=== PATIENT | male | born 1970 | race Caucasian/White ===

== ENCOUNTER 2016-12-22 09:23 | Emergency (ER) ==
[2016-12-22 09:35] VITALS: BP 100/54; TEMP 97.4; BMI 23.6
[2016-12-22] MEDS ORDERED: MORPHINE 4 MG/ML SYRINGE IM STA ×2 (09:50→11:36)
[2016-12-22] MEDS ORDERED: ZOFRAN 4 MG/2 ML IM STA ×2 (09:50→11:36)
--- NOTE | 2016-12-22 10:35 | ED.PDOC ---
General ED Provider: Dr. MARIS HOWARD Chief Complaint: Foot Pain/Injury Stated Complaint: foot ankle,pain left side knee pain right side Time Seen by Physician: 09:26 (this pt has fallen from 10 feet [facility] c/o pain knee and ankle pain) Mode of Arrival: Wheelchair Information Source: Patient Exam Limitations: No limitations Primary Care Provider: DON RICO Nursing and Triage Documentation Reviewed and Agree: Yes (NO LOC FALL 10 FEET ) Trauma/Injury Complaint Exam - Trauma Complaint/Exam Location of Pain or Injury: Reports: Other (HEAD , KNEE , WRIST ) Onset/Duration: 1 HRAGO Symptoms Are: Still present Timing of Treatment: Immediate Initial Severity: Moderate Current Severity: Moderate Character: Reports: Sharp Aggravating: Reports: Ambulation Alleviating: Reports: Rest, Immobilization Associated Signs and Symptoms: Reports: Bruising (LEFT ANKLE), Swelling (LEFT ANKLE ), Extremity disuse (LEFT ANKLE ). Denies: LOC, Confusion, Memory loss, Lethargy, Vomiting, Bleeding, Painful respiration, Hoarseness, Dysphagia, Hemoptysis, Significant blood loss (KNEE RIGHT SIDE TENDER , WRIST TENDER , DUE TO DISTRACTING PAIN SPINE WAS EVALUATED ) Review of Systems - Review Of Systems Constitutional: Reports: No symptoms Eyes: Reports: No symptoms Ears, Nose, Mouth, Throat: Reports: No symptoms Respiratory: Reports: No symptoms Cardiac: Reports: No symptoms GI: Reports: No symptoms : Reports: No symptoms Musculoskeletal: Reports: Other (KNEE PAIN, ANKLE PAIN WRIST PAIN ) Skin: Reports: No symptoms Neurological: Reports: No symptoms Endocrine: Reports: No symptoms Hematologic/Lymphatic: Reports: No symptoms All Other Systems: Reviewed and Negative Past Medical History - Past Medical History Previously Healthy: Yes Endocrine: Reports: None Cardiovascular: Reports: None Respiratory: Reports: None Hematological: Reports: None Gastrointestinal: Reports: None Genitourinary: Reports: None Neuro/Psych: Reports: None Musculoskeletal: Reports: None Cancer: Reports: None - Surgical History General Surgical History: Reports: Unknown - Family History Family History: Reports: Unknown - Social History Smoking Status: Current some day smoker, Chews tobacco Hx Substance Use: No Alcohol Screening: None - Immunizations Tetanus Shot up to Date: Yes Physical Exam - Physical Exam Appearance: Well-appearing, No pain distress, Well-nourished Eyes: EVELINE, EOMI, Conjunctiva clear ENT: Ears normal, Nose normal, Oropharynx normal Respiratory: Airway patent, Breath sounds clear, Breath sounds equal, Respirations nonlabored Cardiovascular: RRR, Pulses normal, No rub, No murmur GI/: Soft, Nontender, No masses, Bowel sounds normal, No Organomegaly Musculoskeletal: Limited ROM (LEFT ANKLE , LEFT ANKLE WAS MARKEDLY EDEMATOUS, BRUSED BUT ALL PULSES WERE STRONG AND PALPABLE CONFIRMED WITH DEYSI RAINEY FROM XRAY PRESENT WELL , RIGHT KNEE TNDER BUT NOT BRUSED LEFT WRIST TENDER AND ) Skin: Warm, Dry, Normal color Neurological: Sensation intact, Motor intact, Reflexes intact, Cranial nerves intact, Alert, Oriented Psychiatric: Affect appropriate, Mood appropriate Interpretation - Radiology Interpretation Radiology Interpretation By: Radiologist Radiology Results: Positive (COMMINUTED FRACTURE DISLOCATION OF LEFT ANKLE, POSTIVE FOR TIBIAL PLATUEA FX AND DISTAL RADIUS FRACTURE) Re-Evaluation - Re-Evaluation Time of Re-Evaluation: 10:30 Status: Improved Vital Signs Stable: Yes Pain Level: 2/10 Appearance: NAD Lungs: Clear Skin: Warm and Dry Neuro: Alert and Oriented X3 CV: Other (DISTALL PULSES STONG JOSE J PRESENT) Physician Notification - Case Discussed Physician Notified: yanique hernández MD Time of Notification: 11:43 (transfer now) Critical Care Note - Critical Care Note Total Time (mins): 0 Course - Course Orders, Labs, Meds: Orders Category Date Time Status Morphine Sulfate [Morphine 4 mg/ml Syringe] MEDS 12/22/16 09:50 Discontinued 4 mg IM ONCE STA Morphine Sulfate [Morphine 4 mg/ml Syringe] MEDS 12/22/16 11:36 Discontinued 4 mg IM ONCE STA Ondansetron HCl/Pf [Zofran 4 mg/2 ml] MEDS 12/22/16 09:50 Discontinued 4 mg IM ONCE STA Ondansetron HCl/Pf [Zofran 4 mg/2 ml] MEDS 12/22/16 11:36 Discontinued 4 mg IM ONCE STA ANKLE, LEFT MIN 3 VIEWS Stat RADS 12/22/16 09:[address] ABDOMEN/PELVIS WO CONTRAST Stat RADS 12/22/16 10:[address] CERVICAL SPINE W/O CONTRAST Stat RADS 12/22/16 10:[address] CHEST W/O CONTRAST Stat RADS 12/22/16 10:[address] HEAD W/O CONTRAST Stat RADS 12/22/16 10:[address] LUMBAR SPINE W/O CONTRAST Stat RADS 12/22/16 10:[address] THORACIC SPINE W/O CONTRAST Stat RADS 12/22/16 10:23 Completed FOOT, LEFT 2 VIEWS Stat RADS 12/22/16 09:50 Completed KNEE, RIGHT 4 VIEWS Stat RADS 12/22/16 09:50 Completed WRIST, LEFT 3 VIEWS Stat RADS 12/22/16 09:51 Completed Medications Discontinued Medications Generic Name Dose Route Start Last Admin Trade Name Ban PRN Reason Stop Dose Admin Morphine Sulfate 4 mg 12/22/16 09:50 12/22/16 09:56 Morphine 4 Mg/Ml Syringe IM 12/22/16 09:51 4 mg ONCE STA Administration Morphine Sulfate 4 mg 12/22/16 11:36 Morphine 4 Mg/Ml Syringe IM 12/22/16 11:37 ONCE STA Ondansetron HCl 4 mg 12/22/16 09:50 12/22/16 09:57 Zofran 4 Mg/2 Ml IM 12/22/16 09:51 4 mg ONCE STA Administration Ondansetron HCl 4 mg 12/22/16 11:36 Zofran 4 Mg/2 Ml IM 12/22/16 11:37 ONCE STA Vital Signs: Temp Pulse Resp BP Pulse Ox 12/22/16 09:24 97.4 F L 62 16 100/54 L 95 Departure - Departure Time of Disposition: 11:15 Disposition: TSF SHORT-TRM HOSP Discharge Problem: Fracture dislocation of left ankle Fracture of tibial plateau, closed Qualifiers: Encounter type: initial encounter Laterality: right Qualifier Code: (S82.141A) Displaced bicondylar fracture of right tibia, initial encounter for closed fracture Distal radius fracture, left Qualifiers: Encounter type: initial encounter Fracture type: closed Instructions: Ankle Fracture (ED), Ankle Dislocation (ED), Wrist Fracture in Adults (ED) Condition: Good Pt referred to PMD for follow-up: Yes Additional Instructions: Please call your Family Physician as soon as possible to schedule a follow-up appointment. Allergies/Adverse Reactions: Allergies No Known Allergies Allergy (Unverified 12/22/16 09:54) Home Medications: Ambulatory Orders Hydrocodone Bit/Acetaminophen [[place] 7.5-325] 1 tab PO TID 12/22/16
--- NOTE | 2016-12-22 10:50 | DI ---
EXAM: Radiographs, right knee HISTORY: Initial presentation for right knee injury. COMPARISON: None available. TECHNIQUE: Four views. FINDINGS: Comminuted, depressed lateral tibial plateau fracture noted with depression of at least o ne articular surface fracture fragment by up to 0.9 cm. No knee dislocation identified. Mild under lying osteoarthritis is present. IMPRESSION: Comminuted depressed lateral tibial plateau fracture.
--- NOTE | 2016-12-22 10:50 | DI ---
EXAM: Radiographs, left wrist HISTORY: Initial presentation for left wrist trauma. COMPARISON: None available. TECHNIQUE: Three views. FINDINGS: Minimally-displaced impacted intra-articular fracture of the distal radial metaphysis not ed. No wrist dislocation identified. No corresponding ulnar fracture identified. IMPRESSION: Minimally-displaced intra-articular distal radial fracture.
--- NOTE | 2016-12-22 10:51 | DI ---
EXAM: LEFT ANKLE 3 VIEWS HISTORY: Injury, pain FINDINGS: There is a severely comminuted distal tibial fracture with moderate displacement of the f racture fragments and there is intra-articular extension. The tibiotalar joint articulation is non anatomical. The distal shaft of the tibia is situated laterally by about 1.7 cm relative to the charbel ar dome. No definite distal fibular fracture is seen. No visualized fracture of the hind foot. IMPRESSION: Distal tibial fracture.
--- NOTE | 2016-12-22 11:15 | DI ---
EXAM: Radiographs, left foot HISTORY: Initial presentation for left foot trauma. COMPARISON: None available. TECHNIQUE: Single lateral view. FINDINGS/IMPRESSION: Comminuted intra-articular distal tibial fracture is incompletely characterized along with suspected tibiotalar dislocation. Refer ankle report from the same day for details.
--- NOTE | 2016-12-22 11:23 | CT ---
EXAM: CT BRAIN HISTORY: Head trauma TECHNIQUE: CT brain without intravenous contrast. 5-mm axial sections with Reformations. COMPARISON: None FINDINGS: Brain is unremarkable without distinct evidence of hemorrhage or large vessel distribution recent ischemic infarction. There is no suggestion of acute hydrocephalus or subdural fluid collection. N o mass or mass effect. Cranium is within normal limits. Mastoid air cells are aerated. The visualized paranasal sinuses are clear. IMPRESSION: No acute intracranial process.
--- NOTE | 2016-12-22 11:27 | CT ---
EXAM: CT cervical spine. HISTORY: Fall. TECHNIQUE: CT cervical spine without contrast. Detailed axial sections. Coronal and sagittal re-f ormations. COMPARISON: None FINDINGS: No acute cervical spine fracture is identified. No loss of vertebral body height or spondylolisthes is. Lateral masses of C1 and C2 are normally aligned and the odontoid process is intact. No scolios is. There is no paraspinal hematoma or soft tissue swelling. IMPRESSION: No fracture or subluxation identified.
--- NOTE | 2016-12-22 11:30 | CT ---
EXAM: CT thoracic spine without contrast. HISTORY: Initial presentation for back injury due to a fall. COMPARISON: None available. TECHNIQUE: Multiple axial images of the thoracic spine were obtained without intravenous contrast. Images were reformatted in the sagittal and coronal planes. FINDINGS: The normal curvature and alignment are maintained. Vertebral body and intervertebral dis c heights are normal. No fracture or subluxation is seen. No significant central canal stenosis id entified. Adjacent soft tissues are unremarkable. Dependent subsegmental atelectasis seen in both l ower lobes. Calcified granulomatous changes noted. IMPRESSION: No acute abnormality of the thoracic spine.
--- NOTE | 2016-12-22 11:35 | CT ---
EXAM: CT LUMBAR SPINE HISTORY: Fall TECHNIQUE: CT lumbar spine without contrast. 3-mm axial sections. Coronal and sagittal reformatio ns. COMPARISON: 08/23/2016 CT abdomen and pelvis FINDINGS: No acute fracture is identified. Normal vertebral body height and alignment. Mild degen erative endplate and facet disease. No scoliosis. Sacroiliac joints are intact. Incidental note o f several calculi within the left kidney largest at 1.2 cm situated inferiorly. No traumatic centra l canal stenosis or paraspinal fluid. IMPRESSION: No acute fracture or subluxation. Incidental note of left nephrolithiasis.
--- NOTE | 2016-12-22 11:36 | CT ---
EXAM: CT chest without contrast. HISTORY: Initial presentation for chest trauma. COMPARISON: None available. TECHNIQUE: Multiple axial images of the chest were obtained without intravenous contrast. Images w ere reformatted in the sagittal and coronal planes. FINDINGS: Evaluation for lymphadenopathy is limited due to lack of intravenous contrast. No periao rtic fluid identified. No acute mediastinal fluid collections are seen. Heart size is normal. The re is no pericardial effusion. Evaluation for lymphadenopathy is limited due to lack of intravenous contrast. Calcified granulomatous changes noted. Mild dependent subsegmental atelectasis seen in both lower l obes. No pleural effusion or pneumothorax identified. No acute abnormalities seen in the upper abdomen. Gastric fundal diverticulum is present. Left nep hrolithiasis noted. No acute osseous abnormality identified. IMPRESSION: No acute abnormality of the chest.
--- NOTE | 2016-12-22 11:44 | CT ---
EXAM: CT ABDOMEN AND PELVIS HISTORY: Trauma TECHNIQUE: CT abdomen and pelvis without intravenous contrast. Images were reconstructed using 5 m m section thickness. Reformations were prepared. COMPARISON: 03/25/2016 FINDINGS: Diagnostic limitations exist without including contrast enhanced images. No obvious hepatic or sple fabi fractures are identified. Gallbladder, pancreas and adrenal glands are within normal limits. Se veral calculi within the left kidney measuring up to 1.2 cm. Some cortical volume loss inferiorly i s noted within this affected kidney. No hydronephrosis or evidence of ureteral obstruction. Normal abdominal aorta. Stomach grossly unremarkable. Normal appendix and general bowel gas pattern. No abnormal bowel wal l thickening or hematoma is seen. Urinary bladder is intact. Coarse calcifications within the pros earl without enlargement. There is no ascites or evidence of hemoperitoneum. All no abdominal wall hernia or peripheral soft tissue hematoma. No fracture is seen. There is no pneumoperitoneum. See also same day CT thorax report. IMPRESSION: 1. No intra-abdominal or pelvic injuries identified. 2. No fractures. 3. Left nephrolithiasis.
[2016-12-22] MEDS ORDERED: DILAUDID 1 MG/ML SYRINGE ONE (12:16)
[2016-12-22] MEDS ORDERED: DILAUDID 2 MG/ML SYRINGE IVP STA (12:28)
[2016-12-22] MEDS ORDERED: DILAUDID 1 MG/ML SYRINGE IVP STA ×2 (12:29)
== END 2016-12-22 12:32 | disposition short-term general hospital (02) ==
LOC: ED 09:23
DX: S82.141A Displaced bicondylar fracture of right tibia, initial encounter for closed fracture (principal); S52.502A Unspecified fracture of the lower end of left radius, initial encounter for closed fracture; S82.302A Unspecified fracture of lower end of left tibia, initial encounter for closed fracture; S09.90XA Unspecified injury of head, initial encounter; W17.89XA Other fall from one level to another, initial encounter; F17.210 Nicotine dependence, cigarettes, uncomplicated
CPT/HCPCS: 96372; 96374; 96375; 96376; 99284; 99285

== ENCOUNTER 2016-12-22 12:24 | Outpatient (CLI) ==
[2016-12-22 09:35] VITALS: BMI 23.6
== END 2016-12-22 12:25 | disposition home or self-care (01) ==
LOC: AMBL 12:24
PROVIDERS: ATTEND Internal Medicine
DX: S62.102A Fracture of unspecified carpal bone, left wrist, initial encounter for closed fracture (principal); S82.892A Other fracture of left lower leg, initial encounter for closed fracture; S82.001A Unspecified fracture of right patella, initial encounter for closed fracture; W17.89XA Other fall from one level to another, initial encounter